=== PATIENT | male | born 2000 | race Caucasian/White ===

== ENCOUNTER 2025-01-07 03:10 | Emergency (ER) | payer OTHER, SELFPAY ==
[2025-01-07 03:18] VITALS: BP 135/81; PULSE 72; RESP 14; TEMP 36.4; O2SAT 100; BMI 29.5
--- NOTE | 2025-01-07 03:34 | [facility].EDGENADL ---
Discharge Plan Disposition Patient Disposition: Home, Self-Care Condition: Good Referrals Follow up/Referrals: Provider,Referral, MD [Primary Care Provider] - See instructions Activity Restrictions/Add. Instructions Additional Instructions/Restrictions: Recommend initiating loratadine or a similar antihistamine daily. Also recommend starting nasal fluticasone. Also known as Flonase, but there are other generic names. You can find these medications [id number]. Clinical Impressions Clinical Impression: Allergic rhinitis Qualifiers: Allergic rhinitis seasonality: seasonal Print Language Print Language: [place] Discharge ED Provider: Eduin Maxwell General Adult HPI General Chief complaint: Upper Respiratory Infection Stated complaint: sinus congestion, itchiness ears nose Time Seen by Provider: 01/07/25 03:10 Mode of Arrival: Ambulatory Source of Information: Patient Description of Symptoms (Recalled from ER Triage Doc. by RN): Congestion Pt presents to the ED with c/o nasal congestion and itchy throat X 2 days. Pt reports taking benadryl X 2 hrs ago and zyrtec yesterday. History of Present Illness HPI narrative: 24-year-old male with history of seasonal allergies presents with nasal congestion, itchy eyes, itchy throat, itchy nose for the last several days. He reports he has taken some Benadryl but does not take antihistamines regularly. Denies fever or shortness of breath. Related Data Allergies Allergy/AdvReac Type Severity Reaction Status Date / Time sulfamethoxazole (From Allergy Mild Gastrointestinal Verified 01/07/25 03:23 Bactrim) Upset trimethoprim (From Bactrim) Allergy Mild Gastrointestinal Verified 01/07/25 03:23 Upset PFSH PFSH Disclaimer: The information contained in this section may have been updated after the patient was seen, as this information can be updated by other users. Social History Smoking Status: Never smoker alcohol intake: never current occupational status: other Travel in the last 8 weeks?: None ROS Obtained: Yes All systems reviewed & no additional complaints except as documented Physical Exam General General appearance: alert and in no apparent distress Head Head exam: atraumatic and normocephalic Eye Eye exam: Present normal appearance, PERRL, EOMI and conjunctival injection; Absent discharge ENT ENT exam: Present TM's normal bilaterally, normal external ear exam and other (Cobblestoning the posterior oropharynx, no significant tonsillar swelling or exudate); Absent normal oropharynx Neck Neck exam: Present normal inspection and full ROM Chest Chest inspection: Present normal inspection and symmetric chest wall rise; Absent tenderness Respiratory Respiratory exam: Present normal lung sounds bilaterally; Absent respiratory distress Cardiovascular Cardiovascular exam: Present regular rate and normal rhythm Abdominal Exam Abdominal exam: Present soft; Absent distention, tenderness or guarding Extremities Exam Extremities exam: Present normal inspection; Absent edema or joint swelling Back Exam Back exam: Present normal inspection; Absent tenderness Neurological Exam Neurological exam: Present alert and oriented X3; Absent motor sensory deficit Psychiatric Psychiatric exam: Present normal affect and normal mood Skin Skin exam: Present warm, dry and normal color Lymphatic Lymphatic Findings: no adenopathy Medical Decision Making Medical Records Medical records reviewed: Yes I reviewed the patient's medical records. Screening: Per USPSTF and CDC recommendations, given the prevalence of disease in our region, it is our hospital?s policy to screen for HIV and viral Hepatitis for all patients aged 18 and over and those with ongoing risk factors. Trevin Inquiry Pt receiving controlled substance: No Trevin was queried for this patient: No Vital Signs: 01/07/25 03:18 01/07/25 03:40 Temperature 97.6 F 98.3 F Temperature Source Oral Oral Pulse Rate 72 Pulse Rate [Right] 72 Respiratory Rate 14 16 Blood Pressure 150/78 H Blood Pressure [Left Arm] 135/81 Blood Pressure Mean [Left Arm] 99 Blood Pressure Source [Left Arm] Automatic Cuff Blood Pressure Position [Left Arm] Sitting 02 Sat by Pulse Oximetry 100 Oxygen Delivery Method Room Air Room Air Lab Data Lab results reviewed: Yes I reviewed the patient's lab results. Orders (Tests/Meds): ED MEDICATIONS Discontinued Medications Generic Name Dose Route Start Last Admin Trade Name [place] PRN Reason Stop Dose Admin Loratadine 10 mg 01/07/25 03:39 01/07/25 03:46 Loratadine 10mg Tablet PO 01/07/25 03:40 10 mg ONCE ONE Administration Medical Decision Narrative: 24-year-old male with history of seasonal allergies presents with several days of coughing, itchy eyes nose throat and ears, nasal congestion. Presentation is consistent with seasonal allergies. No evidence of bacterial pathology such as pneumonia, strep throat etc. Patient was discharged with instructions to begin taking daily antihistamines and Flonase. Given a dose of loratadine in ED. Discharged in stable condition. Procedures Risk/Benefits of Procedure(s) Were Explained: Yes Critical Care Critical Care Time Critical Care Time: No
[2025-01-07 03:40] VITALS: BP 150/78; PULSE 72; RESP 16; TEMP 36.8; O2SAT 98
[2025-01-07] MEDS: LORATADINE 10MG TABLET 10 MG PO (03:46)
== END 2025-01-07 04:05 | disposition home or self-care (01) ==
LOC: ER 03:56
PROVIDERS: Emergency Provider Emergency Medicine
DX: J30.2 Other seasonal allergic rhinitis (principal); R09.81 Nasal congestion
CPT/HCPCS: 99283